=== PATIENT | female | born 1965 | race Caucasian/White ===

== ENCOUNTER 2019-08-02 08:35 | Observation (INO) | payer OTHER ==
[2019-07-28 07:18] LABS: HEMATOCRIT 43.6 % (37.0-47.0); HEMOGLOBIN 14.7 gm/dL (12.0-15.0); MCH 29.7 pg (26.0-34.0); MCHC 33.7 g/dL (28.0-37.0); MCV 88.2 fL (80.0-100.0); MPV 9.3 fl. (7.2-11.1); RBC 4.94 mil/uL (4.20-5.00); RDW-CV 14.5 % (10.5-14.5); WBC 6.9 thou/uL (4.0-11.0)
[2019-07-28 07:25] LABS: CREATININE 0.9 mg/dL (0.6-1.3); POTASSIUM 3.7 mmol/L (3.5-5.1)
[2019-07-28 07:30] LABS: ALBUMIN 4.4 g/dL (3.4-5.0); TOTAL BILIRUBIN 0.4 mg/dL (<0.1-1.0); TOTAL PROTEIN 7.3 g/dL (6.4-8.2)
[~2019-08-02] VITALS: Ht 170.2 cm; Wt 93.9 kg
--- NOTE | ~2019-08-02 | H ---
[address] [address] HISTORY AND PHYSICAL Name: KIRAN LOPEZ Room: [address] Ochoa Mayer#: [id number] Admission: 08/02/19 Attend Phys: Buck Britt DO Discharge: 08/03/19 Date of : 69 Report #: [id number] THIS REPORT FOR: //name// Please refer to the History and Physical performed in the physician's office. By: 0706Medical Records Staff JOEL /IAN
[~2019-08-02 08:35] MED LIST: AMBEREN; BENTYL10 MG PO; CALCIUM 500 +1 EAC5; CALCIUM 600 +1 EAC1 PO; CHLORTHALIDONE25 MG PO; CLIMARA PRO PA1 EACH TOP; COLACE100 MG PO; CYTOMEL 25 MCG25 MC1 PO; ESTRADIOL 1 MG T1 M1 PO; FENOFIBRIC ACI135 MG PO; FLEXERIL PO; HYDROCODON-ACE1 EAC1 PO; HYDROCODON-ACE1 EACH; IMITREX 50 MG T50 M1 PO; IMITREX 50 MG T50 MG PO; MAG-OX 400 TAB400 MG PO; MELATONIN3 MG PO; MULTIVITAMINS PO; NORCO 5-325 TA1 EAC1 PO; PRINIVIL20 MG PO; PROPRANOLOL 8080 M1 PO; PROPRANOLOL ER PO; SYNTHROID200 MCG PO; VASCEPA1 GM PO; VITAMIN D1000 UNI1 PO; VITAMIN D5000 UNI1 PO; ZANTAC 150MG T150 MG PO; ZOCOR40 MG PO
[2019-08-02 09:12] LABS: HEMATOCRIT 42.5 % (37.0-47.0); HEMOGLOBIN 14.9 gm/dL (12.0-15.0); MCH 30.3 pg (26.0-34.0); MCHC 35.1 g/dL (28.0-37.0); MCV 86.1 fL (80.0-100.0); MPV 9.3 fl. (7.2-11.1); RBC 4.93 mil/uL (4.20-5.00); RDW-CV 13.6 % (10.5-14.5); WBC 7.5 thou/uL (4.0-11.0)
[2019-08-02 09:18] LABS: APTT 30.6 Seconds (25.0-31.3); POTASSIUM 3.9 mmol/L (3.5-5.1); PROTIME 10.6 Seconds (9.20-11.50)
[2019-08-02 09:22] LABS: ALBUMIN 4.6 g/dL (3.4-5.0); TOTAL BILIRUBIN 0.4 mg/dL (<0.1-1.0); TOTAL PROTEIN 7.5 g/dL (6.4-8.2)
[2019-08-02 11:59] VITALS: BP 141/89
[2019-08-02 15:34] VITALS: BP 125/74
--- NOTE | 2019-08-02 15:43 | NUR ---
ASSESSMENT COMPLETE. PT ADMITTED TO UNIT FROM SURGERY AT 1442. PT IS ALERT AND ORIENTED X4. REPORTS PAIN 2/10, DENIES NEED FOR PAIN MEDICATION. PT IS ON 2L PER NC WITH CAPNO IN PLACE. FAMILY AT BEDSIDE. DRESSING TO ABD C/D/I. PT BED ALARM ON. PT EATING LUNCH, DENIES N/V. SEE ASSESSMENT AND VITALS FOR OTHER DETAILS. CALL LIGHT WITHIN REACH, WILL CONTINUE PLAN OF CARE
[2019-08-02 21:00] VITALS: BP 144/79
[2019-08-03] VITALS: BP 125/71; BP 134/73
[2019-08-03 04:00] VITALS: BP 129/76
--- NOTE | 2019-08-03 06:58 | NUR ---
PATIENT SLEPT PART OF THE NIGHT. DRESSING TO ABDOMEN REMAINS DRY AND INTACT. PATIENT WAS GIVEN PAIN MEDICINE TWICE THIS SHIFT. PATIENT IS POSSIBLY GOING HOME TODAY. WILL CONTINUE TO MONITOR.
[2019-08-03 07:52] VITALS: BP 109/78
[2019-08-03 13:48] VITALS: BP 109/78
[2019-08-03] MEDS ORDERED: OXYCODONE HCL5 MG PO (13:56)
--- NOTE | 2019-08-03 15:33 | NUR ---
ASSESSMENT COMPLETE. PT DC HOME AFTER 2129 HUMATE INFUSION. PT HAS LAST HUMATE SET UP FOR TOMORROW MORNING AT 0930. PT GIVEN PRN PAIN MEDICATION NEEDED. PT AMBULATING IN HALLWAYS THROUGHOUT THE DAY. PT IS ON ROOM AIR, VSS. UP AD NIRU WITH STEADY GAIT. SEE ASSESSMENT AND VITALS FOR OTHER DETAILS. CALL LIGHT WITHIN REACH. WILL CONTINUE PLAN OF CARE
[2019-08-03 16:00] VITALS: BP 109/70
--- NOTE | 2019-08-03 21:02 | NUR ---
PATIENT GIVEN HER DOSE OF IV HUMATE AND SOME PAIN MEDS BEFORE SHE LEFT. DISCHARGE INSTRUCTIONS HAD ALREADY BEEN GIVEN. PATIENT DISCHARGED WITH ALL HER BELONGINGS AND PICKED UP BY HER .
--- NOTE | 2019-08-04 17:06 | PATH ---
[facility] [address] [place] [address] PATHOLOGY RPT PROCEDURE Name: JESSICAKIRAN Room: [address] Ochoa Mayer#: [id number] Admission: 08/02/19 Date of : 69 Discharge: 08/03/19 Report #: [id number] Path Case #: [id number] [facility] Accession Number: [id number] . 01 Material submitted: . hernia - VENTRAL HERNIA SAC. Modifiers: ventral . 01 Clinical history: . Preop DX: Recurrent umbilical hernia w/ incarceration Postop DX: Recurrent umbilical hernia . 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 (NOMI:cora; 08/04/2019) MBR 08/04/2019 1248 Local . 02 Electronically signed: . Manfred Pearl MD, Pathologist NPI- [id number] . 01 Gross description: . The specimen is received in formalin labeled "Jessica, Kiran, ventral hernia sac". The post-operative diagnosis is listed on the requisition as "recurrent umbilical hernia". Received is an elongate segment of partially granular, yellow-lynch to dusky purple-lynch soft tissue measuring 6.8 x 0.8 x 0.7 cm in greatest dimensions. Sectioning reveals pale lynch to pink-lynch cut surfaces. The specimen is submitted representatively in cassette A1. (DAC; 08/03/2019) XDC/XDC 08/03/2019 0934 Local . 02 Pathologist provided ICD-10: K42.9 . 02 CPT . 130479 Specimen Comment: A courtesy copy of this report has been sent to Specimen Comment: [phone], , . Specimen Comment: Report sent to ,DR FERNÁNDEZ / DR ONEAL Performed at: 01 [facility] [address], [place], [place] [id number] MD Ever Cartagena MD Phone: [phone] Performed at: 02 [facility] [address], [place], [place] [id number] MD Manfred Pearl MD Phone: [phone]
--- NOTE | 2019-08-31 13:34 | OP ---
[address] [address] OPERATIVE REPORT Name: SUZI LOPEZARTUR Diaz Room: [address] Ochoa Mayer#: [id number] Admission: 08/02/19 Attend Phys: Buck Britt DO Discharge: 08/03/19 Date of : 69 Report #: [id number] THIS REPORT FOR: //name// CC: Buck Phipps DICTATED BY: Arpan Gandhi DO DATE OF SERVICE: 08/02/2019 PREOPERATIVE DIAGNOSIS: Recurrent ventral hernia. POSTOPERATIVE DIAGNOSIS: Recurrent ventral hernia. SURGEON: Buck Britt DO MATRIX DRIER TENDER: Castillo Gandhi, PGY-5 OPERATION PERFORMED: Open ventral hernia repair with 6.[address] [place] mesh. ANESTHESIA: General and local. ESTIMATED BLOOD LOSS: 10 mL. SPECIMENS REMOVED: Hernia sac. COMPLICATIONS: None. DISPOSITION: The patient will be allowed to further recover in the PACU and then be kept for 24 hours observation. DESCRIPTION OF PROCEDURE: After the appropriate consents were obtained, this patient was taken to the operating room, laid in supine position. She had SCDs placed on her bilateral lower extremities and a safety strap placed across her lap. All lines were placed by Anesthesia. Her arms were placed out at her sides. She was then sedated and intubated by Anesthesia without difficulty. The patient's abdomen was exposed, prepped, and draped in a standard sterile fashion. A timeout was performed to correctly identify the patient and procedure. We gave the patient perioperative antibiotics at this time. We were able to palpate hernia at the superior aspect of her umbilicus. She had a small incision directly over the umbilicus in a vertical fashion. We used a 15 blade scalpel to make our incision through her old scar. This was carried down through the subcutaneous tissue and to encounter the hernia sac. We were able to completely circumferentially dissect out the hernia sac [place] [address] OPERATIVE REPORT Name: KIRAN LOPEZ Room: [address] Ochoa Mayer#: [id number] Admission: 08/02/19 Attend Phys: Buck Britt DO Discharge: 08/03/19 Date of : 69 Report #: [id number] time we elected to enter the hernia sac safely. After we did enter the hernia sac, we were able to use a finger to sweep the anterior abdominal wall to ensure there were no esperanza-incisional adhesions, none were present. There was just some incarcerated fat within the hernia. There was no bowel that we noticed. The hernia sac was transected and the fascia was cleaned off circumferentially. We could feel some old suture present at the superior aspect of the hernia defects as well as on the lateral side of the hernia defect. We measured the hernia defect, which appeared to be 2 cm in diameter. We elected to use a 6.[address] [place] mesh to repair the hernia. We deployed the mesh within the patient's hernia defect and it was lying nicely. Using multiple 0 Prolene sutures, we repaired the fascia over the mesh, grabbing a bite of mesh each time we used our interrupted sutures. These sutures were placed horizontally and we achieved adequate reapproximation of the fascia. Once we were complete with her hernia repair and we were pleased with the reapproximation, we then injected the fascia and subcutaneous tissue using 0.5% Marcaine. The subcutaneous tissue was closed using a 3-0 Vicryl stitch in an inverted interrupted fashion. The skin was closed using a 4-0 Monocryl suture in a subcuticular fashion. The skin was then cleaned and dried adequately and we placed Mastisol, Steri-Strips, and sterile Tegaderm OpSite over the incision. We then placed gauze and Medipore tape to act as a pressure dressing. The patient was allowed to awaken and subsequently extubated in the OR and allowed to transport back to the PACU. She will be admitted for further observation tonight and likely discharged home later tomorrow. All counts were correct x 2 at the end of this procedure. Dr. Britt was present and scrubbed for the entire procedure. <ELECTRONICALLY SIGNED> By: Buck Britt DO 08/31/19 1334 1335 1359Aduncan Britt DO /nt
== END 2019-08-03 21:00 | disposition home or self-care (01) ==
LOC: M.SUR 08:35 → M.3W 13:25 → M.TBA 13:25 → M.3W 14:42 → M.SUR 15:53 → M.3W 08-03 21:00
PROVIDERS: ADMIT Surgery
DX: K43.2 Incisional hernia without obstruction or gangrene (principal); D68.0 Von Willebrand disease; I10 Essential (primary) hypertension; Z79.899 Other long term (current) drug therapy

== ENCOUNTER → 2019-08-04 | Outpatient (CLI) | payer OTHER ==
[~2019-08-04] MED LIST changes: +OXYCODONE HCL5 MG PO
[2019-08-04 10:30] VITALS: BP 136/74
[2019-08-04 11:00] VITALS: BP 132/70
--- NOTE | 2019-08-04 11:35 | NUR ---
ARRIVED AMBULATORY. MADE SLEF COMFORTABLE. AT CHAIRSIDE. QUESTION REGUARDING PT NAME ON ORDER BEING MAIDEN NAME AND NOT MATCHING LEGAL NAME. CALL PLACED TO DR. SALEH'S OFFICE. ORDER CLARIFIED AND VERBAL ORDER WRITTEN. IVP COMPLETED ORDERED. TOLERATED WELL. DENIES ADVERSE REACTION TO PRIOR IVP OF SAME. DENIES SURGICAL COMPLICATION. DENIES QUESTIONS OR NEEDS AT DISCHARGE.
== END ==
LOC: M.INFUS 09:00
DX: D68.0 Von Willebrand disease (principal); K42.0 Umbilical hernia with obstruction, without gangrene; I10 Essential (primary) hypertension; E78.00 Pure hypercholesterolemia, unspecified; Z90.710 Acquired absence of both cervix and uterus

== ENCOUNTER → 2021-11-19 | Outpatient (CLI) | payer OTHER | LOC: M.LAB 11:53 | PROVIDERS: ATTEND Internal Medicine Gastroenterology | DX: Z01.812 Encounter for preprocedural laboratory examination (principal); Z20.822 Contact with and (suspected) exposure to COVID-19; E87.6 Hypokalemia ==